=== PATIENT | female | born 1995 | race Caucasian/White ===

== ENCOUNTER 2017-04-18 15:41 | Emergency (ER) | payer MEDICAID ==
[~2017-04-18] VITALS: Ht 165.1 cm; Wt 65.9 kg
[2017-04-18] MEDS ORDERED: ALBUTEROL SULFATE 2.5 MG/3 ML ONE (16:37)
[2017-04-18 16:54] LABS: HEMOGLOBIN 14.6 g/dL (11.7-16.4); WHITE BLOOD COUNT 10.2 x10^3/uL (3.4-10)
[2017-04-18] MEDS ORDERED: ALBUTEROL SULFATE 2.5 MG/3 ML NPPB ONE (17:00)
[2017-04-18 17:06] LABS: BLOOD UREA NITROGEN 14 mg/dL (7-18)
[2017-04-18 17:52] VITALS: BP 123/79
== END 2017-04-18 18:13 | disposition home or self-care (01) ==
LOC: ED 16:25
DX: J02.9 Acute pharyngitis, unspecified (principal); J06.9 Acute upper respiratory infection, unspecified
CPT/HCPCS: 36415; 71020; 80048; 82040; 85025; 86308; 87081; 87147; 87880; 93005; 94640; 99285; J7613

== ENCOUNTER 2017-05-30 14:37 | Emergency (ER) | payer MEDICAID ==
[~2017-05-30] VITALS: Ht 167.6 cm; Wt 66.8 kg
[2017-05-30 14:54] VITALS: BP 134/95
[2017-05-30] MEDS ORDERED: DEXAMETHASONE 4 MG TABLET PO STA (15:25)
[2017-05-30] MEDS ORDERED: DEXAMETHASONE 4 MG TABLET ONE (15:30)
== END 2017-05-30 15:49 | disposition home or self-care (01) ==
LOC: ED 15:30
DX: J02.0 Streptococcal pharyngitis (principal)
CPT/HCPCS: 99283